=== PATIENT | male | born 1940 | race Caucasian/White ===

== ENCOUNTER → 2017-08-29 12:36 | Outpatient (CLI) | payer MEDICARE, OTHER, SELFPAY ==
--- NOTE | 2017-08-29 12:38 | DI.RAD.S_ITS ---
PROCEDURE: [place] BARIUM SWALLOW INDICATIONS: dysphagia, weight loss COMPARISON: None. FINDINGS: Function: There is delayed esophageal peristalsis. No elicited gastroesophageal reflux. Morphology: Air-contrast images demonstrate markedly irregular appearance of the distal esophagus. There are shaggy, irregular margins. Multiple polypoid and poorly defined filling defects are seen suggestive of abnormal soft tissue. There is also [id number] narrowing Limited images of the stomach demonstrate normal appearance. IMPRESSION: Marked irregular appearance of the distal esophagus suspicious for abnormal soft tissue/esophageal malignancy. Recommend further evaluation with dedicated endoscopy. Findings personally telephoned and discussed with Dr. Tate on 08/29/17. Dictated by: Jamir Bruce M.D. on 08/29/2017 at 14:53 Approved by: Jamir Bruce M.D. on 08/29/2017 at 15:34
== END ==
PROVIDERS: PCP Internal Medicine; Visit Provider Internal Medicine
DX: R06.00 Dyspnea, unspecified (principal); R63.4 Abnormal weight loss; R93.3 Abnormal findings on diagnostic imaging of other parts of digestive tract
CPT/HCPCS: 74220

== ENCOUNTER 2017-09-03 08:42 | Day surgery (SDC) | payer MEDICARE, OTHER, SELFPAY ==
[2017-09-03] VITALS (7 sets, daily range): BP systolic 136–169; BP diastolic 67–78; PULSE 70–81; RESP 10–16; TEMP 36.1–36.6; O2SAT 94–98
--- NOTE | 2017-09-03 | PATH_ITS ---
[facility] Accession Number: [id number] . 01 Material submitted: . PART A: ESOPHAGEAL TUMOR PART B: PROXIMAL STRICTURE BIOPSY OF ESOPHAGUS AT 20CM . 02 Diagnosis: A. Esophageal Tumor, Biopsy: Adenocarcinoma, moderately to poorly differentiated, undermining squamous mucosa. . B. Esophagus, Proximal Stricture at 20 cm, Biopsy: Squamous and columnar mucosa with no diagnostic abnormality. Negative for intestinal metaplasia, dysplasia or malignancy. . . Esophageal Her2 Biomarker Reporting Template . RESULTS: HER2 (by immunohistochemistry): NEGATIVE (0). Primary antibody: 4B5 Testing performed on Block Number: A1. . COMMENT: The criteria used is based on the ToGA Trial 6 for Scoring HER2 Expression by Immunohistochemistry (IHC) in Gastric and Esophagogastric Junction Adenocarcinoma. MRV/09/10/2017 . 02 Comment: As part of routine quality engineer medical device, Dr. Meza has reviewed part A of this case and agrees with the above diagnosis. The finding of a malignant neoplasm was reported to Dr. Pena's nurse, [facility], by Dr. Dalton Isabel on 09/05/2017 at 3:20 p.m. . 02 Electronically signed: . Dalton Isabel MD, PhD, Pathologist NPI- [id number] . 01 Gross description: . Part A: ESOPHAGEAL TUMOR: Received in formalin are multiple fragment(s) of feliz, soft tissue measuring 2.5 x 1.4 x 0.3 cm in aggregate submitted entirely in 1 cassette(s) Part B: PROXIMAL STRICTURE BIOPSY OF ESOPHAGUS AT 20CM: Received in formalin are multiple fragment(s) of feliz, soft tissue measuring 0.9 x 0.1 x 0.1 cm in aggregate submitted entirely in 1 cassette(s) /TRC /TRC . 02 Microscopic: . Part A: Sections are of ulcerated squamous mucosa undermined by a proliferation of epithelioid cells with a nested and focally cribriform architecture. To further classify the cells of interest, a limited panel of histochemical and immunohistochemical stains are performed (each with an appropriately positive control). The cells of interest are negative for p40 and CK5/6 immunoreactivity. Additionally, a mucicarmine stain highlights scattered neoplastic cells which contain intracytoplasmic mucin droplets. Overall, the findings are consistent with adenocarcinoma, and rule out squamous cell carcinoma. An immunohistochemical stain for HER-2 is performed which shows focal areas of cytoplasmic immunoreactivity; however, no membranous reactivity is seen. . * This test was developed and its performance characteristics determined by [employer]. It has not been cleared or approved by the U.S. Food and Drug Administration. The FDA has determined that such clearance or approval is not necessary. This test is used for clinical purposes. It should not be regarded as investigational or for research. . 02 Pathologist provided ICD-10: C15.9 . 02 CPT . 750048, 056554, I24299, C89020, 782944 Performed at: 01 [facility] [address] [id number] MD Db Curran MD Phone: [phone] Performed at: 02 [facility] [address] [place] [id number] MD Toño Heck MD Phone: [phone]
[2017-09-03] MEDS: SODIUM CHLORIDE 0.9% 1,000 ML 200 ML IV (09:00)
--- NOTE | 2017-09-03 10:10 | P.HP_ITS ---
History of Present Illness Chief complaint: [id number] Narrative: Rosalino Kelley is a 77 year old male He has had progressive dysphagia of solids. He is able to tolerate liquids without difficulty. It is hard for him to tell exactly where the food hangs up but he points to his upper chest and epigastric areas. He has had progressive weight loss of 20 or 30 lb over the last 6 weeks due to his decreased food intake. Patient History Medical History Cardiomyopathy, unspecified (Chronic) Malignant neoplasm of prostate (Chronic) Essential hypertension (Chronic) Mixed hyperlipidemia (Chronic 04/04/15) Atrial fibrillation (Chronic 04/04/15) History of brachytherapy (Inactive) Surgical History History of vasectomy Status post appendectomy Status post tonsillectomy and adenoidectomy Tobacco & Substance Use Smoking Status: Never smoker Meds Home Medications Medication Instructions Recorded Confirmed Type CA PANTOTHENATE/FOLIC ACID/VIT 1 tab PO QDAY #0 03/26/12 09/03/17 History (MULTIVITAMIN) UBIDECARENONE (Co Q-10) 300 mg PO QDAY #0 03/26/12 09/03/17 History VITAMIN D (Vitamin D3) 2,000 unit PO QDAY #0 03/26/12 09/03/17 History Fish Oil (#FISH OIL) 1,000 iu PO Q DAY #0 04/25/12 09/03/17 History aspirin 325 mg PO QDAY #0 04/25/12 09/03/17 History digoxin [Lanoxin] 0.25 mg PO QDAY #90 tab 04/10/17 09/03/17 Rx diltiazem HCl 240 mg PO QDAY #90 cap 04/10/17 09/03/17 Rx lisinopril [Zestril] 10 mg PO QDAY #90 tab 04/10/17 09/03/17 Rx ibuprofen 200 mg PO DAILY 09/03/17 09/03/17 History Allergies Allergy/AdvReac Type Severity Reaction Status Date / Time No Known Drug Allergies Allergy Verified 09/03/17 09:00 Review of Systems Review of Systems All systems reviewed & are unremarkable except as noted in HPI and below Cardiovascular Comments: High blood pressure and atrial fibrillation Exam Vital Signs (past 8 hours): Vital Signs - 8 hr 3 09/03/17 09:02 Temperature 96.9 F L Pulse Rate 75 Respiratory Rate 16 Blood Pressure 169/78 H Pulse Oximetry 98 Pulse Oximetry 98 Oxygen Delivery Method Room Air Narrative Exam Narrative: Operative thin gentleman no apparent distress his neck is supple there are no nodes in the neck or supraclavicular areas. Lungs are clear to auscultation. No rales or rhonchi. Heart irregularly irregular with the very prominent PMI. No bruit in the neck. Abdomen is mildly protuberant soft. There are no palpable masses. Liver and spleen not enlarged. Patient is alert and oriented x3 speech rate content appropriate. Assessment & Plan Plan: Plan: Patient with dysphagia. I have discussed the procedure and the rationale with the patient including risks of bleeding, perforation which would necessitate a major operation, I discussed the potential to balloon dilate which would increase the risk of perforation.. They appeared to understand and wished to proceed.
--- NOTE | 2017-09-03 10:10 | PM.PREOP ---
Pre-operative Note Interval Note Pre-op Check: History & Physical exam performed today ASA Class (for procedural sedation): III
[2017-09-03] MEDS: LIDOCAINE 4% SOLN 50 ML 20 ML TOP (10:12)
[2017-09-03] MEDS: TETRACAINE/BENZOCAINE/BUTAMBEN (CETACAINE) BOTTLE 1 SPRAY TOP (10:13)
[2017-09-03] MEDS: MIDAZOLAM 5 MG/5 ML VIAL IV (10:14)
[2017-09-03] MEDS: fentaNYL 250 MCG/5 ML INJ IV (10:15)
--- NOTE | 2017-09-03 10:46 | P.OP.ENDO_ITS ---
Operative Date/Time/Diagnoses - Date of procedure: 09/03/17 Time of procedure: 10:36 Pre-op diagnosis: Dysphagia and weight loss 30 lb over 6 weeks. Abnormal barium swallow Post-op diagnosis: other (Possible proximal Chatman's esophagus with stricture. 7 cm long circumferential esophageal mass. Stomach appears to be spared) Procedure & Clinicians Study performed: EGD with cold biopsy Same procedure as scheduled: Yes Indications: Dysphagia and weight loss. Abnormal barium swallow Surgeon: Isreal Pena Procedure Notes SCOAP/Timeout: Performed Procedure in detail: The patient is placed in left lateral decubitus position after having topical anesthetic applied to his oropharynx. He was sedated in stepwise fashion using fentanyl and Versed directed by the surgeon. A bite block was inserted. The scope was advanced through it into the esophagus. I noticed that his cords were normal. This is I entered the upper esophagus I encountered a red denuded area suspicious for Chatman's esophagus. At the time of this reddened area was stricture that was widely patent. I continued on into the remainder of the esophagus. In the distal esophagus there was a very large friable mass. It appeared to be circumferential and bled freely as the scope passed over it. I took multiple biopsies and with some difficulty was able to identify the patent esophageal channel. We entered the stomach which insufflated well. The body and antrum were normal. The pyloric channel was patent. The duodenum was edematous between the 1st and 2nd parts but I could not see any lesions. The scope was advanced to the 4th part and brought back into the stomach. The scope was retroflexed in the stomach itself appeared to be spared the process of the distal esophagus. I could identify no lesion on the stomach side. There was also no evidence of a hiatal hernia. The scope was brought back up into the esophagus. GE junction noted at 40 cm. Tumor appeared to begin at 33 cm from the incisors. The scope was brought up into the proximal esophagus where biopsies were taken of the stricture and the red and denuded tissue in the proximal esophagus. The scope was removed and the patient tolerated the procedure well. Scope withdrawal time: Not applicable Sedation minutes: 23 Findings: Chatman's esophagus, possible cancer (Esophageal cancer highly likely ) and other findings (Esophageal mass distal 7 cm and stricture at 20 cm from the incisors) Specimen(s): other (Esophageal biopsies) Complications: none Recommendations: Other recommendation (Will refer for treatment) Follow up: as needed Disposition: PACU
--- NOTE | 2017-09-03 11:19 | SUR.PHASEII ---
at bedside- awaiting dr singleton, report to katelynn.
== END 2017-09-03 12:05 | disposition home or self-care (01) ==
PROVIDERS: PCP Internal Medicine; Visit Provider Specialist
PROC: 0DJ08ZZ Inspection of Upper Intestinal Tract, Via Natural or Artificial Opening Endoscopic (ICD-10-PCS; CPT 43235; principal; 2017-09-03 09:45)
DX: C15.9 Malignant neoplasm of esophagus, unspecified (principal); R13.10 Dysphagia, unspecified; R63.4 Abnormal weight loss; I10 Essential (primary) hypertension; I48.91 Unspecified atrial fibrillation; K22.70 Barrett's esophagus without dysplasia
CPT/HCPCS: 43239; 88305; 88313; 88341; 88342; 99152; 99153; J2250; J3010

== ENCOUNTER → 2017-09-10 11:29 | Outpatient (CLI) | payer MEDICARE, OTHER, SELFPAY ==
--- NOTE | 2017-09-10 | DI.CT.S_ITS ---
PROCEDURE: CT CHEST ABD PEL W CON INDICATIONS: DISTAL ESOPHAGEAL CANCER TECHNIQUE: After the administration of oral and intravenous contrast, 5 mm thick sections acquired from the lung apices to the symphysis. 5 mm coronal and sagittal reformats were performed, with additional 7 mm coronal MIP reformats through the lungs. For radiation dose reduction, the following was used: automated exposure control, adjustment of mA and/or kV according to patient size. COMPARISON: [place], [place] BARIUM SWALLOW, 08/29/2017, 13:07. FINDINGS: Image quality: Excellent. CHEST: Lungs and pleura: No acute consolidation. There are bilateral subcentimeter pulmonary nodules, for example in the right lung base measuring 7 mm on image 50 series 7. Additional nodules seen in the left lung base measuring 5 mm on image 28 series 7. Several other smaller nodules including subpleural basilar nodule on image 27 series 7 measuring 2 mm No pleural effusions or pneumothorax. Central and peripheral airways appear patent and normal in caliber. Mediastinum: Heart size is enlarged mitral valvular calcifications. Coronary artery calcifications. No pericardial effusion. No mediastinal or hilar adenopathy by size criteria. Thoracic aorta and central pulmonary arteries are normal in size. There is marked thickening of the mid to distal esophagus, corresponding to the radiographic appearance from prior comparison study dated 08/29/17, again presumed esophageal carcinoma. Chest wall: No axillary or supraclavicular adenopathy by size criteria. Thyroid gland negative. ABDOMEN: Solid organs: Innumerable hepatic metastases are present with ill-defined margins and hypodense appearance. The largest of which is seen in the left lobe measuring 6.3 cm on image 78 series 2. Additional large 4.8 cm diameter lesion in the right lobe on image 63 series 2. Gallbladder decompressed otherwise unremarkable. Biliary system is non dilated. Pancreas enhances normally. Spleen is normal in size and enhancement. No adrenal nodules. Kidneys demonstrate normal size and enhancement, without hydronephrosis. Bilateral simple appearing renal cysts. Peritoneum and bowel: Bowel loops demonstrate normal wall thickness and caliber. No free fluid or air. Incidental colonic diverticula are present. The appendix is not well seen although probably normal on image 102, series 2. Nodes and vessels: There are numerous gastrohepatic and retroperitoneal shotty lymph nodes suspicious for early metastatic disease. Aorta and inferior vena cava are normal in size. Miscellaneous: No ventral hernias. PELVIS: Genitourinary: Bladder wall thickness is normal. There are prostate brachytherapy seeds Miscellaneous: No inguinal hernias or adenopathy. Bones: Diffuse osteopenia limits evaluation however there is lytic/permeative appearance to the left iliac wing, possible trabecular and cortical thickening. IMPRESSION: Severe circumferential mid to lower esophageal wall thickening, presumably reflecting esophageal malignancy. Please correlate with endoscopic findings. Bilateral scattered variable sized pulmonary nodules, highly suspicious for pulmonary metastatic disease. Innumerable hepatic metastases as detailed above. Gastrohepatic and retroperitoneal shotty lymph nodes suspicious for early metastatic disease. Irregularity of the left iliac wing as described above, which could reflect incidental Paget's disease although differential includes diffuse osseous metastatic infiltration. Evaluation limited by severe diffuse osteopenia. Severe cardiomegaly. Dictated by: Jamir Bruce M.D. on 09/10/2017 at 16:50 Approved by: Jamir Bruce M.D. on 09/10/2017 at 17:11
== END ==
PROVIDERS: PCP Internal Medicine; Visit Provider Specialist
DX: C15.5 Malignant neoplasm of lower third of esophagus (principal); I51.7 Cardiomegaly; K76.9 Liver disease, unspecified; R59.0 Localized enlarged lymph nodes; R93.7 Abnormal findings on diagnostic imaging of other parts of musculoskeletal system; R91.8 Other nonspecific abnormal finding of lung field
CPT/HCPCS: 71260; 74177; Q9967